=== PATIENT | male | born 1995 | race Hispanic/Latino ===

== ENCOUNTER 2022-06-07 17:46 | Emergency (ER) | payer MEDICARE, MEDICAID ==
[~2022-06-07] VITALS: Ht 177.8 cm; Wt 167.0 kg
[~2022-06-07 17:46] MED LIST: AMOXIL400 MG/52 PO; AUGMENTIN400 MG/51 OR; BROMFED D1 PO; KEPPRA100 MG/ML PO
[2022-06-07 19:30] VITALS: BP 154/111
[2022-06-07 19:56] LABS: URINE BILIRUBIN - DIPSTICK NEGATIVE (NEGATIVE); URINE BLOOD DIPSTICK NEGATIVE (NEGATIVE); URINE COLOR YELLOW; URINE GLUCOSE - DIPSTICK >=1000 mg/dL (NEGATIVE); URINE KETONE 15 mg/dL (NEGATIVE); URINE LEUK ESTERASE NEGATIVE (NEGATIVE); URINE PH 5.5 (4.5-8.0); URINE PROTEIN - DIPSTICK NEGATIVE (NEG-TRACE); URINE SPECIFIC GRAVITY <=1.005; URINE UROBILINOGEN - DIPSTICK 0.2 E.U./dL (0.2)
[2022-06-07 19:57] LABS: URINE NITRITE - DIPSTICK NEGATIVE (Negative)
[2022-06-07 20:15] VITALS: BP 162/124
[2022-06-07 20:18] LABS: BASO% 0.8 % (0-3); EOS% 1.4 % (0-8); HEMATOCRIT 46.6 % (39.0-50.0); HEMOGLOBIN 15.5 g/dl (14.0-18.0); IMMATURE GRANULOCYTES 0.3 % (0.0-5.0); MEAN CELL VOLUME 77.8 fL CALC (80.0-100.0); MEAN CORPUSCULAR HGB 25.9 pG CALC (26.0-32.0); MEAN CORPUSCULAR HGB CONC 33.3 g/dL CAL (32.0-36.0); MONO% 5.5 % (2-13); NEUT# 4.05 thou/uL (1.82-7.42); RED BLOOD COUNT 5.99 mill/uL (4.70-6.10); RED CELL DISTRI WIDTH 14.2 % (11.5-15.5)
[2022-06-07 20:29] LABS: ALBUMIN 4.7 g/dL (3.2-5.0); ALKALINE PHOSPHATASE 161 u/l (38-126); ANION GAP 16 (6-22 (CALC)); BILIRUBIN, TOTAL 1.1 mg/dL (0.2-1.3); BUN 11 mg/dL (9-20); BUN/CREATININE RATIO 14 (12-20 (CALC)); CARBON DIOXIDE 22 mmol/l (22-30); CHLORIDE 99 mmol/l (95-108); CREATININE 0.7 mg/dL (0.7-1.3); GFR FOR AFR.AMER. > 60 ML/MIN (>=60 (CALC)); GFR OTHER RACES > 60 ML/MIN (>=60 (CALC)); MAGNESIUM 1.9 mg/dL (1.6-2.3); POTASSIUM 3.7 mmol/l (3.5-5.1); SGOT/AST 72 u/l (17-59); SODIUM 134 mmol/l (137-146); TOTAL PROTEIN 8.7 g/dL (6.3-8.2)
[2022-06-07 20:30] VITALS: BP 169/129
[2022-06-07] MEDS ORDERED: LANTUS SOL100 UNIT/M SC (22:09)
[2022-06-07] MEDS ORDERED: METFORMIN HCL500 M1 PO (22:09)
[2022-06-07 22:19] VITALS: BP 169/99
== END 2022-06-07 22:20 | disposition home or self-care (01) ==
LOC: ED 17:46
PROVIDERS: Family Medicine
DX: E11.9 Type 2 diabetes mellitus without complications (principal); G40.909 Epilepsy, unspecified, not intractable, without status epilepticus; F84.0 Autistic disorder

== ENCOUNTER 2022-06-11 17:56 | Emergency (ER) | payer MEDICARE, MEDICAID ==
[~2022-06-11] VITALS: Ht 177.8 cm; Wt 174.5 kg
[~2022-06-11 17:56] MED LIST changes: +LANTUS SOL100 UNIT/M SC; +METFORMIN HCL500 M1 PO
[2022-06-11 19:29] VITALS: BP 155/116
[2022-06-11 19:31] VITALS: BP 147/110
[2022-06-11 19:45] VITALS: BP 155/113
[2022-06-11 20:44] LABS: ANION GAP 13 (6-22 (CALC)); BUN 9 mg/dL (9-20); BUN/CREATININE RATIO 11 (12-20 (CALC)); CARBON DIOXIDE 25 mmol/l (22-30); CHLORIDE 99 mmol/l (95-108); CREATININE 0.8 mg/dL (0.7-1.3); GFR FOR AFR.AMER. > 60 ML/MIN (>=60 (CALC)); GFR OTHER RACES > 60 ML/MIN (>=60 (CALC)); POTASSIUM 3.5 mmol/l (3.5-5.1); SODIUM 132 mmol/l (137-146)
[2022-06-11] MEDS ORDERED: LANTUS SOL100 UNIT/M SC (21:24)
[2022-06-11] MEDS ORDERED: METFORMIN HYD1000 MG PO (21:24)
== END 2022-06-11 21:41 | disposition home or self-care (01) ==
LOC: ED 17:56
PROVIDERS: Family Medicine
DX: E11.65 Type 2 diabetes mellitus with hyperglycemia (principal); F84.0 Autistic disorder; G40.909 Epilepsy, unspecified, not intractable, without status epilepticus; Z79.4 Long term (current) use of insulin

== ENCOUNTER 2024-07-09 18:29 | Emergency (ER) | payer MEDICARE, MEDICAID ==
[~2024-07-09] VITALS: Ht 177.8 cm; Wt 153.0 kg
[~2024-07-09 18:29] MED LIST changes: +METFORMIN HYD1000 MG PO
[2024-07-09 20:04] VITALS: BP 145/91
[2024-07-09] MEDS ORDERED: PROMETHAZINE HCL 25 MG/ML AMP IV STA (20:09)
[2024-07-09] MEDS ORDERED: SODIUM CHLORIDE 0.9% 1,000 ML IV STA ×2 (20:09→21:04)
[2024-07-09] MEDS ORDERED: LOPERAMIDE HCL 2 MG CAP PO ONE (20:10)
[2024-07-09 20:48] LABS: BASO% 0.1 % (0-3); EOS% 0.1 % (0-8); HEMATOCRIT 43.7 % (39.0-50.0); HEMOGLOBIN 14.4 g/dl (14.0-18.0); IMMATURE GRANULOCYTES 0.3 % (0.0-5.0); LYMPH% 7.4 % (15-41); MEAN CELL VOLUME 79.6 fL CALC (80.0-100.0); MEAN CORPUSCULAR HGB 26.2 pG CALC (26.0-32.0); MONO% 5.3 % (2-13); NEUT# 13.76 thou/uL (1.82-7.42); NEUT% 86.8 % (42-76); RED BLOOD COUNT 5.49 mill/uL (4.70-6.10); RED CELL DISTRI WIDTH 15.1 % (11.5-15.5)
[2024-07-09 20:58] LABS: ALBUMIN 3.8 g/dL (3.2-5.0); POTASSIUM 3.6 mmol/l (3.5-5.1); TOTAL PROTEIN 8.1 g/dL (6.3-8.2)
[2024-07-09 21:01] VITALS: BP 145/96
[2024-07-09 21:01] LABS: CREATININE 2.9 mg/dL (0.7-1.3)
[2024-07-09] MEDS ORDERED: PROMETHAZINE HY25 M1 PO (22:22)
[2024-07-09] MEDS ORDERED: ANTI-DIARRHE2 M1 PO (22:22)
[2024-07-09 22:29] VITALS: BP 145/96
[2024-07-10] MEDS ORDERED: COZAAR25 MG PO (23:20)
== END 2024-07-09 23:03 | disposition home or self-care (01) ==
LOC: ED 18:29
PROVIDERS: Family Medicine
DX: K52.9 Noninfective gastroenteritis and colitis, unspecified (principal); E11.65 Type 2 diabetes mellitus with hyperglycemia; I10 Essential (primary) hypertension; F84.0 Autistic disorder; G40.909 Epilepsy, unspecified, not intractable, without status epilepticus; Z79.4 Long term (current) use of insulin; Z79.84 Long term (current) use of oral hypoglycemic drugs; Z20.822 Contact with and (suspected) exposure to COVID-19
CPT/HCPCS: J2550

== ENCOUNTER 2024-07-10 21:28 | Emergency (ER) | payer MEDICARE, MEDICAID ==
[~2024-07-10] VITALS: Ht 177.8 cm; Wt 154.0 kg
[~2024-07-10 21:28] MED LIST changes: +ANTI-DIARRHE2 M1 PO; +PROMETHAZINE HY25 M1 PO
[2024-07-10] MEDS ORDERED: SODIUM CHLORIDE 0.9% 1,000 ML IV STA (21:53)
[2024-07-10] MEDS ORDERED: PROMETHAZINE HCL 25 MG/ML AMP IV ONE (21:55)
[2024-07-10] MEDS ORDERED: KETOROLAC TROMETHAMINE 30 MG/ML SDV IV ONE (21:55)
[2024-07-10] MEDS ORDERED: PROMETHAZINE HCL 25 MG/TAB PO ONE (22:45)
[2024-07-10] MEDS ORDERED: ACETAMINOPHEN 500 MG TAB PO ONE (22:45)
[2024-07-10 22:57] LABS: BASO% 0.1 % (0-3); EOS% 0.1 % (0-8); HEMOGLOBIN 12.7 g/dl (14.0-18.0); IMMATURE GRANULOCYTES 0.2 % (0.0-5.0); LYMPH% 5.7 % (15-41); MEAN CELL VOLUME 77.4 fL CALC (80.0-100.0); MEAN CORPUSCULAR HGB 26.1 pG CALC (26.0-32.0); MEAN CORPUSCULAR HGB CONC 33.8 g/dL CAL (32.0-36.0); MONO% 6.9 % (2-13); NEUT# 11.65 thou/uL (1.82-7.42); RED BLOOD COUNT 4.86 mill/uL (4.70-6.10); RED CELL DISTRI WIDTH 14.9 % (11.5-15.5)
[2024-07-10 22:58] LABS: HEMATOCRIT 37.6 % (39.0-50.0)
[2024-07-10 23:13] LABS: ALBUMIN 3.8 g/dL (3.2-5.0); ALKALINE PHOSPHATASE 142 u/l (38-126); ANION GAP 12 (6-22 (CALC)); BILIRUBIN, TOTAL 2.7 mg/dL (0.2-1.3); BUN 37 mg/dL (9-20); BUN/CREATININE RATIO 19 (12-20 (CALC)); CARBON DIOXIDE 21 mmol/l (22-30); CHLORIDE 104 mmol/l (95-108); ESTIMATED GFR 46 ML/MIN (>=90 (CALC)); POTASSIUM 3.3 mmol/l (3.5-5.1); SGOT/AST 30 u/l (17-59); SODIUM 134 mmol/l (137-146); TOTAL PROTEIN 8.1 g/dL (6.3-8.2)
[2024-07-10] MEDS ORDERED: COZAAR25 MG PO (23:20)
[2024-07-11 00:09] LABS: URINE BLOOD DIPSTICK Trace-lysed (NEGATIVE); URINE GLUCOSE - DIPSTICK 100 mg/dL (NEGATIVE); URINE KETONE 15 mg/dL (NEGATIVE); URINE NITRITE - DIPSTICK Negative (Negative); URINE PROTEIN - DIPSTICK >=300 mg/dL (NEG-TRACE); URINE SPECIFIC GRAVITY 1.025; URINE UROBILINOGEN - DIPSTICK >=8.0 E.U./dL (0.2)
[2024-07-11 00:22] LABS: URINE BACTERIA MODERATE hpf; URINE COLOR Amber; URINE EPITHELIAL CELLS MODERATE EPI/hpf (0-FEW); URINE LEUK ESTERASE Negative (NEGATIVE)
[2024-07-11 00:23] LABS: URINE COARSE GRANULAR CAST FEW lpf; URINE FINE GRAN CAST FEW lpf; URINE HYALINE CAST MODERATE lpf (NONE-RARE)
[2024-07-11 01:06] VITALS: BP 148/89
== END 2024-07-11 01:06 | disposition home or self-care (01) ==
LOC: ED 21:28
PROVIDERS: Family Medicine
DX: E11.65 Type 2 diabetes mellitus with hyperglycemia (principal); K52.9 Noninfective gastroenteritis and colitis, unspecified; E86.0 Dehydration; F84.0 Autistic disorder; I10 Essential (primary) hypertension; G40.909 Epilepsy, unspecified, not intractable, without status epilepticus; Z79.84 Long term (current) use of oral hypoglycemic drugs
CPT/HCPCS: J2550